=== PATIENT | female | born 1955 | race Caucasian/White ===

== ENCOUNTER 2020-10-08 07:05 | Day surgery (SDC) | payer MEDICARE, OTHER ==
[~2020-10-08] VITALS: Ht 167.6 cm; Wt 139.7 kg
[~2020-10-08 07:05] MED LIST: ATOR20 PO; CARV25 PO; GABA300 PO; HYDCHL25 PO; LOSA50 PO; Omeprazole20 M1 PO; TRAZ50 PO
[2020-10-08] MEDS ORDERED: PANT20 PO (07:51)
[2020-10-08] MEDS ORDERED: FAMO20 PO (07:51)
--- NOTE | 2020-10-08 08:19 | NUR ---
Ambulatory in Day Surgery Patient states colon prep results clear. History, Chart, Medications and Allergies reviewed before start of procedure. Lungs clear T/O to Auscultation. Patient confirms NPO status and agrees with scheduled surgery.
--- NOTE | 2020-10-08 08:57 | NUR ---
10/08/20 0857 Jossie Rodrigez History, Chart, Medications and Allergies reviewed before start of procedure.Patient confirms NPO status and agrees with scheduled surgery.3-LEAD EKG REVIEWED WITH PHYSICIAN PRIOR TO START OF PROCEDURE.MONITOR INTACT WITH CONTINUOUS PULSE OXIMETRY AND INTERMITTENT BP.O2 VIA N/C INTACT THROUGHOUT SEDATION/PROCEDURE. See Anesthesia record.
--- NOTE | 2020-10-08 10:37 | NUR ---
Patient up to Ambulate independently. Gait steady. Discharge instructions reviewed with patient. Patient verbalizes understanding. Copy given to patient to take home. Discharged via wheelchair to private car for ride home W/ DAUGHTER
== END 2020-10-08 22:58 | disposition home or self-care (01) ==
LOC: ORSCMMR 07:05 → ORD 07:05
PROVIDERS: Internal Medicine Gastroenterology
PROC: 0DBL8ZX Excision of Transverse Colon, Via Natural or Artificial Opening Endoscopic, Diagnostic (ICD-10-PCS; principal; 2020-10-08 08:45)
PROC: 0DBM8ZX Excision of Descending Colon, Via Natural or Artificial Opening Endoscopic, Diagnostic (ICD-10-PCS; principal; 2020-10-08 08:45)
PROC: 0DB78ZX Excision of Stomach, Pylorus, Via Natural or Artificial Opening Endoscopic, Diagnostic (ICD-10-PCS; principal; 2020-10-08 08:45)
PROC: 0DB58ZX Excision of Esophagus, Via Natural or Artificial Opening Endoscopic, Diagnostic (ICD-10-PCS; principal; 2020-10-08 08:45)
PROC: 0D758ZZ Dilation of Esophagus, Via Natural or Artificial Opening Endoscopic (ICD-10-PCS; principal; 2020-10-08 08:45)
PROC: 0DB48ZX Excision of Esophagogastric Junction, Via Natural or Artificial Opening Endoscopic, Diagnostic (ICD-10-PCS; principal; 2020-10-08 08:45)
DX: K21.9 Gastro-esophageal reflux disease without esophagitis (principal); R13.14 Dysphagia, pharyngoesophageal phase; K29.70 Gastritis, unspecified, without bleeding; Z12.11 Encounter for screening for malignant neoplasm of colon; Z86.010 Personal history of colon polyps; D12.3 Benign neoplasm of transverse colon; D12.4 Benign neoplasm of descending colon; E11.9 Type 2 diabetes mellitus without complications; I10 Essential (primary) hypertension; Z79.899 Other long term (current) drug therapy
CPT/HCPCS: 88305; 88312; 88342; A9270; C1726; J2704; J7120

== ENCOUNTER 2021-06-09 19:53 | Emergency (ER) | payer MEDICARE, OTHER ==
[~2021-06-09] VITALS: Ht 165.1 cm; Wt 124.7 kg
[~2021-06-09 19:53] MED LIST changes: +FAMO20 PO; +PANT20 PO
== END 2021-06-09 21:50 | disposition home or self-care (01) ==
LOC: ER 19:53
DX: S43.401A Unspecified sprain of right shoulder joint, initial encounter (principal); S39.012A Strain of muscle, fascia and tendon of lower back, initial encounter; M25.551 Pain in right hip; M79.641 Pain in right hand; M79.642 Pain in left hand; I10 Essential (primary) hypertension; Z88.5 Allergy status to narcotic agent; Z88.6 Allergy status to analgesic agent; Z88.8 Allergy status to other drugs, medicaments and biological substances; Z79.899 Other long term (current) drug therapy; W18.30XA Fall on same level, unspecified, initial encounter
CPT/HCPCS: 72100; 73030; 73140; 73502; 99284-25; A9270

== ENCOUNTER 2021-07-02 04:23 | Emergency (ER) | payer MEDICARE, OTHER ==
[~2021-07-02] VITALS: Ht 167.6 cm; Wt 123.8 kg
[2021-07-02] MEDS ORDERED: VITAMIN D5000 UNIT PO (04:59)
[2021-07-02] MEDS ORDERED: PRENATAL TABLE1 EAC2 PO (04:59)
[2021-07-02] MEDS ORDERED: OXYACE7.5T PO (05:50)
[2021-07-02] MEDS ORDERED: METPRE4DP PO (05:50)
== END 2021-07-02 06:20 | disposition home or self-care (01) ==
LOC: ER 04:23
DX: M54.10 Radiculopathy, site unspecified (principal); I10 Essential (primary) hypertension; E11.9 Type 2 diabetes mellitus without complications; Z88.6 Allergy status to analgesic agent; Z88.5 Allergy status to narcotic agent; Z88.8 Allergy status to other drugs, medicaments and biological substances; Z79.899 Other long term (current) drug therapy; Z87.891 Personal history of nicotine dependence
CPT/HCPCS: 93971; 96374; 96375; 99283-25; J1100; J1170; J2405

== ENCOUNTER 2021-12-20 06:03 | Day surgery (SDC) | payer MEDICARE, OTHER ==
[~2021-12-20] VITALS: Ht 162.6 cm; Wt 109.5 kg
[~2021-12-20 06:03] MED LIST changes: +CEPH500 PO; +METPRE4DP PO; +OXYACE7.5T PO; +PRENATAL TABLE1 EAC2 PO; +SULTRIDS PO; +VITAMIN D5000 UNIT PO
--- NOTE | 2021-12-20 07:47 | NUR ---
12/20/21 0747 Winifred Tracy 3 IV ATTEMPTS, FIRST IN L FOREARM BY KMB INFILTRATED, SECOND BY JST IN L HAND INFILTRATED, THIRD IN L AC WAS SUCCESSFUL.
--- NOTE | 2021-12-20 08:30 | NUR ---
12/20/21 0830 Pierre Luong ORIGINAL IV IN LEFT AC INFILTRATED SO A NEW IV WAS ESTABLISHED ON THE TOP OF HER RIGHT FOOT WITHOUT DIFFICULTY.
--- NOTE | 2021-12-20 11:03 | NUR ---
12/20/21 1103 LORA GARAY GIVEN, PT STATES SHE HAS TAKEN THIS MEDICATION IN THE PAST NO ISSUE. GIVEN TO PATIENT- TOLD PT TO TAKE WITH FOOD AT HOME, TO WAIT UNTIL 7PM TO TAKE NEXT DOSE, PT VERBALIZED UNDERSTANDING.
== END 2021-12-20 11:03 | disposition home or self-care (01) ==
LOC: ORSCSDS 06:03
PROVIDERS: Orthopaedic Surgery
PROC: 0RBJ4ZZ Excision of Right Shoulder Joint, Percutaneous Endoscopic Approach (ICD-10-PCS; principal; 2021-12-20 07:30)
PROC: 0RNJ4ZZ Release Right Shoulder Joint, Percutaneous Endoscopic Approach (ICD-10-PCS; principal; 2021-12-20 07:30)
PROC: 0LM14ZZ Reattachment of Right Shoulder Tendon, Percutaneous Endoscopic Approach (ICD-10-PCS; principal; 2021-12-20 07:30)
DX: M75.111 Incomplete rotator cuff tear or rupture of right shoulder, not specified as traumatic (principal); M75.51 Bursitis of right shoulder; M75.41 Impingement syndrome of right shoulder; S42.251A Displaced fracture of greater tuberosity of right humerus, initial encounter for closed fracture; Z87.891 Personal history of nicotine dependence; E66.01 Morbid (severe) obesity due to excess calories; Z68.41 Body mass index [BMI] 40.0-44.9, adult; E11.9 Type 2 diabetes mellitus without complications; E78.5 Hyperlipidemia, unspecified; G47.33 Obstructive sleep apnea (adult) (pediatric); Z79.899 Other long term (current) drug therapy
CPT/HCPCS: 82947; A9270; C1713; J0171; J0690; J1100; J2250; J2370; J2405; J2704; J3010; J3370; J7060; J7120

== ENCOUNTER → 2022-11-15 | Outpatient (CLI) | payer MEDICARE, OTHER ==
[2022-11-15 20:10] LABS: Alanine Aminotransfer (ALT/SGP 24 U/L (12-78); Albumin, Blood 3.5 g/dL (3.4-5.0); Albumin/Globulin Ratio 1.1 (0.8-1.8); Alk Phos 88 U/L (50-136); Anion Gap Unable to Calculate mmol/L (6-16); Aspartate Aminotrans (AST/SGOT 12 U/L (12-37); Bilirubin, Total 0.2 mg/dL (0.1-1.0); Blood Urea Nitrogen 20 mg/dL (8-24); Bun/Creatinine Ratio 17.4 (12.0-20.0); CHOL/HDL RATIO 3.2; CO2, Blood 29 mmol/L (21-32); Calcium, Blood 9.1 mg/dL (8.5-10.1); Chloride, Blood 112 mmol/L (98-108); Cholesterol 221 mg/dL (50-200); Creatinine, Blood 1.15 mg/dL (0.40-1.00); Globulin, Blood 3.2 g/dL (2.2-4.0); Glomerular Filtration Rate 52 (60-); Glucose, Blood 95 mg/dL (70-99); HDL Cholesterol 69 mg/dL (>39); LDL/HDL RATIO 1.9; Low Density Lipoprotein Chol 132 mg/dL (0-110); Potassium, Blood 4.3 mmol/L (3.5-5.5); Sodium, Blood 140 mmol/L (136-145); Total Protein, Blood 6.7 g/dL (6.4-8.2); Triglycerides 100 mg/dL (30-160); Very Low Density Lipoprot Chol 20 mg/dL (6-32)
== END | disposition home or self-care (01) ==
LOC: LAB 17:25 → LAB SHORT 17:25
PROVIDERS: Nurse Practitioner Family
DX: E66.01 Morbid (severe) obesity due to excess calories (principal); R73.03 Prediabetes; R53.83 Other fatigue; Z98.84 Bariatric surgery status
CPT/HCPCS: 80053; 80061; 83036; 84443

== ENCOUNTER 2023-09-21 09:56 | Emergency (ER) | payer OTHER ==
[~2023-09-21] VITALS: Ht 167.6 cm; Wt 120.2 kg
[2023-09-21] MEDS ORDERED: Ketorolac Tromethamine 15mg Vial IV ONE (10:30)
[2023-09-21] MEDS ORDERED: Ondansetron HCl 2 MG / ML 2ML Vial IV ONE (10:30)
[2023-09-21] MEDS ORDERED: HYDROmorphone HCl/Pf 1MG SYR IV ONE (10:35)
[2023-09-21 10:40] LABS: BASOPHILS ABSOLUTE AUTO 0.04 K/mm3 (0.00-0.23); BASOPHILS PERCENT AUTO 1 % (0-2); EOSINOPHILS ABSOLUTE AUTO 0.04 K/mm3 (0.00-0.68); EOSINOPHILS PERCENT AUTO 1 % (0-6); Hematocrit 40.5 % (33.0-51.0); Hemoglobin 13.8 g/dL (11.5-16.0); IMMATURE GRAN ABSOLUTE AUTO 0.02 K/mm3 (0.00-0.10); IMMATURE GRAN PERCENT AUTO 0 % (0-1); LYMPHOCYTES ABSOLUTE AUTO 1.03 K/mm3 (0.84-5.20); LYMPHOCYTES PERCENT AUTO 12 % (21-46); MONOCYTES ABSOLUTE AUTO 0.24 K/mm3 (0.16-1.47); MONOCYTES PERCENT AUTO 3 % (4-13); Mean Corpuscular HGB 30.3 pg (26.0-34.0); Mean Corpuscular HGB Conc 34.1 g/dL (31.5-36.5); Mean Corpuscular Volume 89 fL (80-100); Mean Platelet Volume 9.5 fL (9.1-12.4); NEUTROPHILS ABSOLUTE AUTO 6.97 K/mm3 (1.96-9.15); NEUTROPHILS PERCENT AUTO 84 % (41-73); Platelet Count 266 K/mm3 (150-400); RDW Coefficient Variation 12.8 % (11.7-14.2); RDW Standard Deviation 41.7 fL (35.1-46.3); Red Blood Cell Count 4.55 M/mm3 (3.80-5.20); White Blood Cell Count 8.34 K/mm3 (4.00-11.30)
[2023-09-21 11:00] LABS: Albumin, Blood 3.7 g/dL (3.4-5.0); Bilirubin, Total 0.3 mg/dL (0.1-1.0); Bun/Creatinine Ratio 17.7 (12.0-20.0); Calcium, Blood 9.6 mg/dL (8.5-10.1); Creatinine, Blood 1.41 mg/dL (0.40-1.00); Globulin, Blood 3.6 g/dL (2.2-4.0); Potassium, Blood 4.5 mmol/L (3.5-5.5); Total Protein, Blood 7.3 g/dL (6.4-8.2)
[2023-09-21] MEDS ORDERED: NS 1,000 ML IV SCH (11:25)
[2023-09-21 12:39] LABS: Source, Urine Clean Catch
[2023-09-21 12:49] LABS: Appearance, Urine Clear (Clear); Bilirubin, Urine Neg (Neg); Blood, Urine 4+ (Neg); Color, Urine Yellow (P-Yellow); Glucose Qualitative, Urine Neg (Neg); Ketones, Urine Neg (Neg); Leukocyte Esterase, Urine Neg (Neg); Nitrite, Urine Neg (Neg); Protein, Urine Neg (Neg); Urobilinogen, Urine NORM (Normal); pH, Urine 6.5 (5.0-8.0)
[2023-09-21 13:00] LABS: Bacteria Not Seen /hpf; Squamous Epithelial Cells Few /hpf (Few); White Blood Cells, Urine 0-2 /hpf (0-5)
[2023-09-21] MEDS ORDERED: HYDR1TAB94 PO (13:38)
[2023-09-21] MEDS ORDERED: Flomax0.4 MG PO (13:38)
[2023-09-21] MEDS ORDERED: HYDROcodone 5-APAP 325 TAB PO ONE (14:00)
[2023-09-21 14:15] VITALS: BP 146/78
== END 2023-09-21 14:17 | disposition home or self-care (01) ==
LOC: ER 09:56
PROVIDERS: Physician Assistant
DX: N13.2 Hydronephrosis with renal and ureteral calculous obstruction (principal); Z88.8 Allergy status to other drugs, medicaments and biological substances; Z88.5 Allergy status to narcotic agent; Z88.6 Allergy status to analgesic agent; Z79.899 Other long term (current) drug therapy; I10 Essential (primary) hypertension; Z87.891 Personal history of nicotine dependence
CPT/HCPCS: 74177; 80053; 81001; 83690; 85025; 96361; 96374-59; 96375; 99284-25; A9270; J1170; J1885; J2405; J7030; Q9967

== ENCOUNTER 2024-09-05 06:22 | Day surgery (SDC) | payer OTHER ==
[2024-09-05] VITALS (11 sets, daily range): BP systolic 142–186; BP diastolic 55–143
[~2024-09-05] VITALS: Ht 165.1 cm; Wt 118.0 kg
[~2024-09-05 06:22] MED LIST changes: +Flomax0.4 MG PO; +HYDR1TAB94 PO
[2024-09-05] MEDS ORDERED: NS 500 ML IV ONE (07:17)
[2024-09-05] MEDS ORDERED: NS 1,000 ML IV ONE ×2 (07:18→08:13)
[2024-09-05] MEDS ORDERED: Nitroglycerin 2 MG/20 ML BTL ONE (07:18)
[2024-09-05] MEDS ORDERED: Heparin Sodium 1000 Units/ML 10ML MDV ONE ×2 (07:18→08:13)
[2024-09-05] MEDS ORDERED: ALBU90OI INH (07:37)
[2024-09-05] MEDS ORDERED: ATOR40TA PO (07:38)
[2024-09-05] MEDS ORDERED: Aspir 8181 MG PO (07:38)
[2024-09-05] MEDS ORDERED: CLOP75 PO (07:39)
[2024-09-05] MEDS ORDERED: COLCHICINE0.6 MG PO (07:40)
[2024-09-05] MEDS ORDERED: FentaNYL Citrate 50 MCG/ML 2 ML Injection ONE ×3 (08:13→10:40)
[2024-09-05] MEDS ORDERED: Midazolam HCl 1MG / ML 2ML Vial ONE ×2 (08:13→08:39)
[2024-09-05] MEDS ORDERED: HydrALAZINE HCl 20 MG / ML 1ML Vial ONE (08:36)
--- NOTE | 2024-09-05 10:48 | NUR ---
PER DR AGUILAR, NEW ORDERS FOR FENTANYL GIVEN D/T COMPLAINING OR RIGHT GROIN PAIN. PT R FEMORAL SITE REMAINS C/D/I, SOFT. TENDER TO THE TOUCH. PT TOLERATES WELL. VSS. CONTINUE TO MONITOR. S/O AT BEDSIDE. CALL LIGHT WITHIN REACH.
--- NOTE | 2024-09-05 12:01 | NUR ---
PATIENT AMBULATING TO RESTROOM WITH WALKER WITH SOME SORENESS IN LEG. GROIN SITE C/D/I SOFT/NONTENDER, HAVEN VIDENCE OF BLEEDING. VSS ON RA. DISCHARGE INSTRUCTIONS REVIEWED WITH PATIENT. ALL QUESTIONS WERE ANSWERED.
--- NOTE | 2024-09-05 12:20 | NUR ---
PATIENT DISCHARGED HOME AT THIS TIME. PATIENT WHEELED TO HOSPITAL ENTRANCE AND SPOUSE ABLE TO PROVIDE TRANSPORTATION HOME. PIV REMOVED WITHOUT DIFFICULTY, CATHETER INTACT. GROIN SITE C/D/I SOFT/NONTENDER, NO EVIDENCE OF BLEEDING.
== END 2024-09-05 12:20 | disposition home or self-care (01) ==
LOC: MHTC 06:22
DX: E11.51 Type 2 diabetes mellitus with diabetic peripheral angiopathy without gangrene (principal); I70.222 Atherosclerosis of native arteries of extremities with rest pain, left leg; I70.1 Atherosclerosis of renal artery; I12.9 Hypertensive chronic kidney disease with stage 1 through stage 4 chronic kidney disease, or unspecified chronic kidney disease; E11.22 Type 2 diabetes mellitus with diabetic chronic kidney disease; N18.9 Chronic kidney disease, unspecified; E78.5 Hyperlipidemia, unspecified; K21.9 Gastro-esophageal reflux disease without esophagitis; Z87.891 Personal history of nicotine dependence; Z88.5 Allergy status to narcotic agent; Z88.6 Allergy status to analgesic agent; Z79.02 Long term (current) use of antithrombotics/antiplatelets; Z79.82 Long term (current) use of aspirin; Z79.899 Other long term (current) drug therapy
CPT/HCPCS: 37225; 75625; 75716; 75774; 76937; 99152; 99153; C1714; C1760; C1769; C1887; C1894; C2623; J0360; J1644; J2250; J3010; J7030; J7050; Q9967